=== PATIENT | male | born 2000 | race Caucasian/White ===

== ENCOUNTER 2018-10-10 17:23 | Emergency (ER) | payer MEDICAID ==
[~2018-10-10] VITALS: Ht 167.6 cm; Wt 59.0 kg
[2018-10-10 17:46] LABS: BASOPHILS % (AUTO) 0.8 % (0.0-2.0); EOSINOPHILS % (AUTO) 1.1 % (0.0-6.0); HEMATOCRIT 38 % (39-51); HEMOGLOBIN 12.8 g/dL (13.5-17.5); LYMPHOCYTES # (AUTO) 0.8 /CMM (0.8-4.8); LYMPHOCYTES % (AUTO) 13.1 % (20.0-44.0); MEAN CORPUSCULAR HGB CONC 34 g/dl (31.0-36.0); MEAN CORPUSCULAR VOLUME 92 fL (80-96); MONOCYTES # (AUTO) 0.7 /CMM (0.1-1.30); MONOCYTES % (AUTO) 11.8 % (2.0-12.0); NEUTROPHILS # (AUTO) 4.3 /CMM (1.8-8.9); NEUTROPHILS % (AUTO) 73.2 % (43.0-81.0); PLATELET COUNT (AUTO) 302 /CMM (150-450); RED BLOOD CELL COUNT(AUTO) 4.15 MIL/uL (4.5-6.0); WHITE BLOOD COUNT (AUTO) 5.8 K/uL (4.3-11.0)
--- NOTE | 2018-10-10 17:48 | NUR ---
JAMIN RA 76 [place] "?ETOH/ALOC/eyes blood shot BS 112" +bruising both eye sockets. UNABLE TO OBTAIN ANY COMPLAINTS. PT RESPONDS ONLY TO PAINFUL STIMULI. ON MONITOR AND READY FOR EVAL.
[2018-10-10 17:53] LABS: CARBON DIOXIDE 27 mmol/L (21-32); CHLORIDE 106 mmol/L (98-107); CREATININE 1.1 mg/dL (0.6-1.3); GLUCOSE 172 mg/dL (74-106); POTASSIUM 3.9 mmol/L (3.5-5.1); SODIUM SERUM 141 mmol/L (136-145); UREA NITROGEN, BLOOD 16 mg/dL (7-18)
[2018-10-10 17:58] LABS: ALANINE AMINOTRANSFERASE 22 U/L (12-78); ALBUMIN 3.7 g/dL (3.4-5.0); ALKALINE PHOSPHATASE 107 U/L (46-116); ASPARTATE AMINOTRANSFERASE 18 U/L (15-37); BILIRUBIN,DIRECT 0.3 mg/dL (0.0-0.2); BILIRUBIN,TOTAL 1.1 mg/dL (0.2-1.0); TOTAL PROTEIN, SERUM 7.4 g/dL (6.4-8.2)
[2018-10-10 17:59] LABS: ALCOHOL, BLOOD < 3 mg/dL (0-0)
[2018-10-10] MEDS ORDERED: IV NS 0.9% 1,000 ML BAG IV ONE (18:00)
--- NOTE | 2018-10-10 19:05 | NUR ---
INFORMED PT OF OREILLY INSERTION. PT MORE AROUSABLE TO STERNAL RUB BY FLAILING ARMS, BUT WILL NOT RESPOND VERBALLY OR OPEN EYES. PER MD, OREILLY CAN BE HELD FOR NOW.
--- NOTE | 2018-10-10 20:53 | NUR ---
PT REMAINS ASLEEP, STILL ONLY RESPONDING TO PAINFUL STIMULI. VSS. WILL CONT TO MONITOR.
--- NOTE | 2018-10-10 22:30 | NUR ---
BP LOW, ATTEMPTED TO READJUST AND MOVE, STILL LOW. DR LANDAVERDE NOTIFIED.
--- NOTE | 2018-10-11 00:23 | NUR ---
PT RESTING COMFORTABLY IN BED. VITAL SIGNS STABLE. NO ACUTE DISTRESS NOTED AT THIS TIME. WILL CONTINUE TO MONITOR
--- NOTE | 2018-10-11 03:09 | NUR ---
PT RESTING COMFORTABLY IN BED, VITAL SIGNS STABLE. WAKES UP TO VOICE. WILL CONTINUE TO MONITOR.
--- NOTE | 2018-10-11 05:42 | NUR ---
PT AAOX4. VITAL SIGNS STABLE. ABLE TO AMBULATE WITH STEADY GAIT. FRIEND AT BEDSIDE TO PUBLIC SPEAKER PT. PT MEDICALLY CLEARED FOR DISCHARGE. Patient discharged to home in stable condition. Written and verbal after care instructions given. Patient verbalizes understanding of instruction.IV removed. Catheter intact and site benign. Pressure and 4x4 applied to site. No bleeding noted.
[2018-10-11 05:44] VITALS: BP 125/76
== END 2018-10-11 05:45 | disposition home or self-care (01) ==
LOC: ER 17:34 → EDBD 17:34 → ER 10-11 05:45
DX: G93.40 Encephalopathy, unspecified (principal); Z59.0 Homelessness
CPT/HCPCS: 36415; 70450; 70486; 80048; 80076; 80307; 85025; 99284; J7030; A6403; G0480

== ENCOUNTER 2018-10-26 20:25 | Emergency (ER) | payer MEDICAID ==
[~2018-10-26] VITALS: Ht 172.7 cm; Wt 65.3 kg
[2018-10-26 20:45] VITALS: BP 133/75
== END 2018-10-26 22:02 | disposition home or self-care (01) ==
LOC: ER 20:30
DX: F19.10 Other psychoactive substance abuse, uncomplicated (principal); H55.00 Unspecified nystagmus; F31.9 Bipolar disorder, unspecified; F41.9 Anxiety disorder, unspecified; F90.9 Attention-deficit hyperactivity disorder, unspecified type; F10.10 Alcohol abuse, uncomplicated; Y90.9 Presence of alcohol in blood, level not specified; Z59.0 Homelessness